=== PATIENT | female | born 1945 | race Caucasian/White ===

== ENCOUNTER 2023-09-17 07:47 | Day surgery (SDC) | payer MEDICARE, MEDICAID ==
[~2023-09-17] VITALS: Ht 152.4 cm; Wt 60.8 kg
[2023-09-17] MEDS ORDERED: fentaNYL CITRATE/PF 100 MCG/2 ML AMP ONE (08:11)
[2023-09-17] MEDS ORDERED: MIDAZOLAM HCL 5 MG/5 ML VIAL ONE (08:11)
[2023-09-17 12:07] VITALS: O2SAT 98
[2023-09-17 13:26] VITALS: BP_SYST 78; PULSE 56; RESP 9
== END 2023-09-17 12:31 | disposition home or self-care (01) ==
LOC: SDS 07:47 → SMU 07:48 → SDS 12:31
PROVIDERS: ATTEND Student in an Organized Health Care Education/Training Program
DX: Z12.11 Encounter for screening for malignant neoplasm of colon (principal); D12.5 Benign neoplasm of sigmoid colon; K64.8 Other hemorrhoids; K64.4 Residual hemorrhoidal skin tags; I10 Essential (primary) hypertension; E78.5 Hyperlipidemia, unspecified; Z79.899 Other long term (current) drug therapy
CPT/HCPCS: 45385; 99152; 88305; G0378; J2250; J3010